=== PATIENT | male | born 1945 | race Caucasian/White ===

== ENCOUNTER → 2017-01-17 | Outpatient (CLI) | payer BC ==
[~2017-01-17] MED LIST: ALBUAER2 INH; IBUP-1050 PO; NITR1CAP33 PO; OXYC-57 PO
--- NOTE | 2017-01-17 14:13 | DIAGNOSTIC IMAGING REPORT ---
BILATERAL CAROTID DOPPLER STUDY HISTORY: MURMUR COMPARISON: Carotid Doppler 11/30/2015. TECHNIQUE: Real-time, grayscale, and color Doppler sonography of the carotid arteries was performed. Imaging reviewed in the transverse and longitudinal planes. All measurements were calculated based on NASCET criteria. FINDINGS: Antegrade flow is seen in the bilateral vertebral arteries. The brachial pressures are hemodynamically similar. Mild calcified plaque within the bilateral carotid bifurcations, unchanged. The peak systolic velocity within the right ICA is 75 cm/s. The right systolic ratio is 0.6. The peak systolic velocity within the left ICA is 82 cm/s. The left systolic ratio is 0.7. IMPRESSION: No hemodynamically significant stenosis seen within the carotid arteries. Electronically signed by: Delmar Munoz M.D. 01/17/2017 2:12 PM Dictated Date/Time: 01/17/2017 2:09 PM
--- NOTE | 2017-01-17 18:05 | ECHOCARDIOGRAM REPORT ---
*NOTICE TO RECEIVING REPUBLICAN AGENCY This information is strictly Confidential and protected under [place] law. [place] law prohibits you from making any further disclosure of this information unless further disclosure is expressly permitted by the written consent of the person to whom it pertains or is authorized by law. A general authorization for the release of medical or other information is not sufficient for this purpose. Hospital accepts no responsibility if the information is made available to any other person, INCLUDING THE PATIENT. Interpretation Summary * Name: JOO VALENZUELA Study Date: 01/17/2017 12:56 PM BP: 135/69 mmHg * Patient Location: [facility] HR: 67 * : 1945 (M/d/yyyy) Gender: Male Height: 72 in * Age: 71 yrs Ethnicity: [place] Weight: 210 lb * Ordering Physician: Kp Camarillo * Referring Physician: CYNTHIA * Performed By: Nela Gurrola RDCS * * Reason For Study: MURMUR * BSA: 2.2 m2 * History: MURMUR * -- Conclusions -- * There is borderline concentric left ventricular hypertrophy. * Left ventricular systolic function is normal. * Grade I diastolic dysfunction, (abnormal relaxation pattern). * No significant valvular disease Procedure Details * A complete two-dimensional transthoracic echocardiogram was performed (2D, M-mode, Doppler and color flow Doppler). Left Ventricle * The left ventricle is normal in size. * There is borderline concentric left ventricular hypertrophy. * Ejection Fraction = 60-65%. * Left ventricular systolic function is normal. Right Ventricle * The right ventricle is normal in size and function. Atria * The left atrial size is normal. * Right atrial size is normal. * The interatrial septum is intact with no evidence for an atrial septal defect. Mitral Valve * The mitral valve anatomy is normal. * There is trace mitral regurgitation. Tricuspid Valve * The tricuspid valve is not well visualized, but is grossly normal. Aortic Valve * The aortic valve is normal in structure and function. * No hemodynamically significant valvular aortic stenosis. * There is no significant aortic regurgitation. Pulmonic Valve * The pulmonic valve is not well visualized. Great Vessels * The aortic root is normal size. Pericardium/Pleural * There is no pericardial effusion. Left Ventricular Diastolic Function * Grade I diastolic dysfunction, (abnormal relaxation pattern). MMode 2D Measurements and Calculations IVSd 1.2 cm IVSs 1.7 cm LVIDd 4.4 cm LVIDs 2.8 cm LVPWd 1.4 cm LVPWs 1.6 cm IVS/LVPW 0.89 FS 36.2 % EDV(Teich) 86.8 ml ESV(Teich) 29.4 ml EF(Teich) 66.2 % EDV(cubed) 84.1 ml ESV(cubed) 21.8 ml EF(cubed) 74.1 % % IVS thick 36.3 % % LVPW thick 17.2 % LV mass(C)d 210.0 grams LV mass(C)dI 96.6 grams/m\S\2 LV mass(C)s 165.4 grams LV mass(C)sI 76.1 grams/m\S\2 SV(Teich) 57.4 ml SI(Teich) 26.4 ml/m\S\2 SV(cubed) 62.3 ml SI(cubed) 28.6 ml/m\S\2 Ao root diam 3.0 cm Ao root area 7.1 cm\S\2 LA dimension 3.4 cm LA/Ao 1.1 LVAd ap4 34.5 cm\S\2 LVLd ap4 9.1 cm EDV(MOD-sp4) 109.0 ml LVAs ap4 19.1 cm\S\2 LVLs ap4 7.1 cm ESV(MOD-sp4) 43.4 ml EF(MOD-sp4) 60.2 % LVAd ap2 30.9 cm\S\2 LVLd ap2 9.1 cm EDV(MOD-sp2) 86.9 ml LVAs ap2 16.7 cm\S\2 LVLs ap2 7.4 cm ESV(MOD-sp2) 33.1 ml EF(MOD-sp2) 61.9 % SV(MOD-sp4) 65.6 ml SI(MOD-sp4) 30.2 ml/m\S\2 SV(MOD-sp2) 53.8 ml SI(MOD-sp2) 24.7 ml/m\S\2 Doppler Measurements and Calculations MV E max delvis 95.1 cm/sec MV A max delvis 108.2 cm/sec MV E/A 0.88 MV dec time 0.25 sec Ao V2 max 152.0 cm/sec Ao max PG 9.2 mmHg Ao max PG (full) 5.4 mmHg LV V1 max PG 3.8 mmHg LV V1 max 97.5 cm/sec
== END | disposition home or self-care (01) ==
LOC: C.CPL 12:49
PROVIDERS: ATTEND Family Medicine
DX: R01.1 Cardiac murmur, unspecified (principal); R94.30 Abnormal result of cardiovascular function study, unspecified